=== PATIENT | female | born 1985 | race Caucasian/White ===

== ENCOUNTER 2016-09-17 11:40 | Emergency (ER) | payer OTHER ==
[~2016-09-17] VITALS: Ht 160 cm; Wt 79.7 kg
[~2016-09-17 11:40] MED LIST: ALBUTEROL SULF8.5 GM IH; NAPROSYN500 MG PO; NORCO 5/3251 TABLET PO; ZITHROMAX Z-PA250 MG PO
[2016-09-17] MEDS ORDERED: MOTRIN800 MG PO (14:16)
[2016-09-17] MEDS ORDERED: FLEXERIL5 MG PO (14:16)
[2016-09-17 14:29] VITALS: BP 137/64
== END 2016-09-17 14:29 | disposition home or self-care (01) ==
LOC: EME 11:40
DX: R07.89 Other chest pain (principal); M54.6 Pain in thoracic spine; V99.XXXA Unspecified transport accident, initial encounter; F17.200 Nicotine dependence, unspecified, uncomplicated
CPT/HCPCS: 71020; 72070; 93005; 99281; 99284

== ENCOUNTER → 2017-01-26 | Outpatient (CLI) | payer OTHER ==
[~2017-01-26] MED LIST changes: +FLEXERIL5 MG PO; +MOTRIN800 MG PO
== END | disposition home or self-care (01) ==
LOC: NUC 01-05 08:00
DX: E05.20 Thyrotoxicosis with toxic multinodular goiter without thyrotoxic crisis or storm (principal)
CPT/HCPCS: 76536; 78014; 78999

== ENCOUNTER → 2017-02-23 | Outpatient (CLI) | payer OTHER | END | disposition home or self-care (01) | LOC: NUC 08:26 | DX: E05.90 Thyrotoxicosis, unspecified without thyrotoxic crisis or storm (principal) | CPT/HCPCS: 79005; A9517 ==